=== PATIENT | female | born 1990 | race Caucasian/White ===

== ENCOUNTER 2018-10-15 21:50 | Inpatient (IN) | payer OTHER ==
[2018-10-15] MEDS ORDERED: Ringers Lactate 1,000 ML IV PRN (22:59)
[2018-10-15] MEDS ORDERED: BUTORPHANOL 1 MG/ML INJ IV PRN (22:59)
[2018-10-15] MEDS ORDERED: Ringers Lactate 1,000 ML IV SCH (23:00)
[2018-10-15 23:21] LABS: RPR Titer ND
[2018-10-15 23:24] LABS: Absolute Lymphocytes (CBC) 2.4 K/uL (0.7-4.9); Absolute Monocytes 1.2 K/uL (0.1-1.3); Absolute Neutrophil 7.8 K/uL (1.8-8.0); Basophils % 0.3 % (0-1.3); Eosinophils % 0.6 % (0-4.4); Lymphocytes % 20.9 % (15.3-44.8); MPV 13.1 fL (7.6-11.3); Monocytes % 10.3 % (3.3-12.3); RBC Red Blood Cell Count 3.84 M/uL (3.86-4.86)
[2018-10-15 23:49] VITALS: BMI 3711.8
[2018-10-16] MEDS ORDERED: OXYTOCIN/LR 20 UNIT/1,000 ML BAG IV SCH ×2 (03:00→19:00)
[2018-10-16] MEDS ORDERED: OXYTOCIN 10 UNIT/ML ML IV ONE (04:02)
[2018-10-16] MEDS ORDERED: METHYLERGONOVINE 0.2MG/ML AMP IM ONE (07:20)
[2018-10-16] MEDS ORDERED: LIDOCAINE 1% MPF 30 ML VIAL SQ ONE (07:21)
[2018-10-16] MEDS ORDERED: FENTANYL CITR 100 MCG/2 ML IV ONE (07:22)
[2018-10-16] MEDS ORDERED: ROPIVACAINE HCL 100 ML IV PRN (07:22)
[2018-10-16] MEDS ORDERED: ROPIVACAINE HCL 0.2% 20ML AMP IV ONE (07:24)
[2018-10-16] MEDS ORDERED: DIPHENHYDRAMINE 50 MG/ML VIAL ONE (08:54)
--- NOTE | 2018-10-16 12:05 | PREOPHP ---
Date of Admission: 10/15/2018 History Of Present Illness: Ms. Lorenzo is a 28-year-old female, 2, para 0-0 -1-0 at approximately 39+ weeks gestation. She is admitted with spontaneous rupture of membranes, no t in active labor. She began smiley shortly after rupture of membranes, but they were infrequen t initially. She has been followed by me during this without significant complications. Past Medical History: Please see record. Family History: Please see record. Review of Systems: She reports no recent cough, cold, fever, or chills. No recent nausea or vomiting. No breast knots or lumps. No bowel or bladder issues. Infant, while activity has been reduced somewhat, has exceede d our guidelines of kick counts. Physical Examination: General: Reveals pleasant female, in mild discomfort. Neck: Supple without adenopathy or thyromegaly. Lungs: Clear. Cardiac: Regular rate and rhythm without murmurs. Breasts: Not examined. Abdomen: Estimated weight of 6+ pounds. heart tones are reactive. She is having occasional small variable type of deceleration with pr ompt recovery. Pelvic: Cervix noted to be 1 cm dilated, 85% effaced, vertex at -2 station. Extremities: No cyanosis, clubbing, or edema. Impression: 1.39+ week . 2.Spontaneous rupture of membranes. 3.Early labor. Plan: The patient is being augmented after initial period of observation of approximately 6+ hours. MARY/NETO Voice ID: [id number]
[2018-10-16] MEDS ORDERED: METHYLERGONOVINE 0.2 MG TAB PO PRN (17:59)
[2018-10-16] MEDS ORDERED: ONDANSETRON 4 MG (ODT) TAB PO PRN (17:59)
[2018-10-16] MEDS ORDERED: Oxycodone HCl/Acetaminophen 1 TAB TAB PO PRN (17:59)
[2018-10-16] MEDS ORDERED: IBUPROFEN 200 MG TAB PO PRN (17:59)
[2018-10-16] MEDS ORDERED: METHYLERGONOVINE 0.2MG/ML AMP IM PRN (17:59)
--- NOTE | 2018-10-16 18:03 | P.BOP ---
Preoperative diagnosis: 38 week Postoperative diagnosis: same, delivered Primary procedure: LOF of viable male infant, CANX2 Secondary procedure: episiotome, repair of 3rd degree extension Estimated blood loss: 350 Anesthesia: epidural Complications: None Condition: Good
[2018-10-16] MEDS ORDERED: DOCUSATE CALCIUM 240 MG CAP PO SCH (21:00)
[2018-10-16 21:04] LABS: RPR (Rapid Plasma Reagin) NON-REACT (NON-REACT)
[2018-10-17 05:07] LABS: Absolute Lymphocytes (CBC) 1.9 K/uL (0.7-4.9); Absolute Monocytes 2.1 K/uL (0.1-1.3); Absolute Neutrophil 19.3 K/uL (1.8-8.0); Basophils % 0.1 % (0-1.3); Hematocrit 33.1 % (36.0-45.0); Lymphocytes % 8.3 % (15.3-44.8); MPV 11.4 fL (7.6-11.3); Monocytes % 9.1 % (3.3-12.3)
[2018-10-17 05:19] LABS: Blood Morphology Comment NOT SEEN (NOT SEEN); Platelet Estimate ADEQ
[2018-10-17] MEDS: CEPHALEXIN 250 MG/5 ML PO SCH ×2 (12:00→18:00)
[2018-10-17] MEDS ORDERED: CEPHALEXIN 250 MG CAP PO SCH (12:00)
--- NOTE | 2018-10-17 16:46 | OP ---
Surgeon: Abiodun Machado MD Ms. Lorenzo is a 28-year-old female, 2, para 0-0-1-0 at approximately 39+ wee ks gestation. She is admitted with spontaneous rupture of membranes, nonactive labor. After initial period of observation of 6-8 hours, Pitocin augmentation of labor was begun. She had a first stage of labor once Pitocin was initiated of approximately 13-1/2 hours. She had a second stage of labor o f approximately 3 hours. She was delivered by low forceps of a 6-pound 5-ounce male . After d elayed cord clamping, cord was clamped, cut, and the infant placed on mother's upper abdomen. Cord b lood was obtained. The placenta was spontaneously expelled and appeared to be intact. Because of pr olonged labor and second stage of labor, she was given 1 dose of methargen IM for prophylaxis against uterine atony. Episiotomy had been performed. This appeared to extend to a third-degree laceration , which was repaired. Muscles were approximated with 2-0 Vicryl suture. Otherwise, episiotomy repai red in the usual fashion with 3-0 Vicryl suture. Estimated total blood loss was less than 350 cc. T he patient had an epidural catheter placed early, received excellent benefit from this, was also augm ented with local infiltration for episiotomy repair. The infant was delivered by low forceps seconda ry to prolonged second stage of labor with variable type of decelerations during a portion of second stage of labor. MARY/NETO Voice ID: [id number] Report ID: [id number]
[2018-10-18] MEDS: CEPHALEXIN 250 MG/5 ML PO SCH ×3 (06:00→12:00)
[2018-10-18] MEDS ORDERED: Tdap (Diph,Pertuss(Acell),Tet Vac) 0.5 ML SYR IMVAC ONE (08:06)
[2018-10-18 11:13] VITALS: BP 142/89; TEMP 98
[2018-10-21 03:38] LABS: HBsAG Nonreactive (Nonreactive)
== END 2018-10-18 15:45 | disposition home or self-care (01) | DRG 768 ==
LOC: 2ND-WC 21:50
PROVIDERS: ADMIT Specialist; ATTEND Specialist
PROC: 10D07Z3 Extraction of Products of Conception, Low Forceps, Via Natural or Artificial Opening (ICD-10-PCS; principal; 2018-10-16)
PROC: 0DQR0ZZ Repair Anal Sphincter, Open Approach (ICD-10-PCS; 2018-10-16)
DX: O62.2 Other uterine inertia (principal); Z37.0 Single live birth; O70.20 Third degree perineal laceration during delivery, unspecified; O63.1 Prolonged second stage (of labor); Z3A.39 39 weeks gestation of pregnancy; O69.81X0 Labor and delivery complicated by cord around neck, without compression, not applicable or unspecified; O76 Abnormality in fetal heart rate and rhythm complicating labor and delivery
CPT/HCPCS: 36415; 85025; 86592; 86850; 86900; 86901; 87340; 90715; J2210; J2590; J2795; J3010